=== PATIENT | male | born 1960 | race Caucasian/White ===

== ENCOUNTER 2016-06-29 10:13 | Outpatient (CLI) ==
--- NOTE | 2016-06-29 11:06 | DI ---
EXAM: Two views of the chest. History: Cough, history of smoking Comparison: Chest radiograph 09/10/2008 Findings: Heart size is normal. No focal consolidation. No appreciable pleural fluid and no pneum othorax. No acute osseous abnormalities. Impression: No acute cardiopulmonary process.
--- NOTE | 2016-06-29 11:19 | US ---
EXAM: Bilateral carotid artery Doppler History: Dizziness, history smoking Technique: Multiple sonographic images through the bilateral internal carotid arteries were obtaine d. Color duplex Doppler was used to interrogate vascular flow. Findings: The right ICA peak systolic velocity is within normal limits measuring 0.9 meters per second. The r ight ICA/cca PSV ratio is normal at 1.2. The right vertebral artery is patent and demonstrates ante grade flow. Hamm scale images demonstrate no significant plaque buildup. The left ICA peak systolic velocity is within normal limits measuring 1.1 meters per second. The lef t ICA/cca PSV ratio is normal at 1.5. The left vertebral artery was not seen. Hamm scale images de monstrate no significant plaque buildup. Impression: 1. No significant hemodynamic stenosis of the bilateral internal carotid arteries. 2. Nonvisualization of the left vertebral artery.
== END 2016-06-29 10:14 | disposition home or self-care (01) ==
LOC: RAD 10:13
PROVIDERS: ATTEND Emergency Medicine
DX: R42 Dizziness and giddiness (principal); R05 Cough; F17.210 Nicotine dependence, cigarettes, uncomplicated

== ENCOUNTER 2016-12-29 15:25 | Emergency (ER) ==
[2016-12-29 15:32] VITALS: BP 120/73; TEMP 97.1; BMI 22.5
[2016-12-29] MEDS ORDERED: BOOSTRIX IM ONE (15:43)
[2016-12-29] MEDS ORDERED: LIDOCAINE 1 % AMP 5 ML (SUTURES) SQ STA (15:43)
--- NOTE | 2016-12-29 15:46 | ED.PDOC ---
General ED Provider: Dr. ROSALVA FLORES Chief Complaint: Finger Laceration Stated Complaint: Pateint is s 56 year old male who comes to the ER with a laceration to the TIP of the right finger with a table saw. Time Seen by Physician: 15:46 Mode of Arrival: Walk-In Information Source: Patient Exam Limitations: No limitations Primary Care Provider: ARTHUR CLAUDIO Nursing and Triage Documentation Reviewed and Agree: Yes Skin Complaint Exam - Laceration/Abrasion/Hand Complaint/Exam Location of Injury: Right, Digit #2 Mechanism of Injury: Laceration (with power saw ) Onset/Duration: immediately Symptoms Are: Still present Initial Severity: Severe Current Severity: Severe Aggravating: Movement Alleviating: Compression Associated Signs and Symptoms: Reports: Fever, Chills, Erythema, Numbness, Tingling Related History: Reports: Right hand dominant Hand Picture: 1 - 1 cm Review of Systems - Review Of Systems Constitutional: Reports: No symptoms Skin: Reports: Other (Left) All Other Systems: Reviewed and Negative Past Medical History - Past Medical History Previously Healthy: Yes Endocrine: Reports: None Cardiovascular: Reports: None Respiratory: Reports: None Hematological: Reports: None Gastrointestinal: Reports: None Genitourinary: Reports: None Neuro/Psych: Reports: None Musculoskeletal: Reports: None Cancer: Reports: None - Surgical History General Surgical History: Reports: None - Family History Family History: Reports: None - Social History Smoking Status: Current every day smoker, Heavy tobacco smoker Hx Substance Use: No Alcohol Screening: Occasionally - Immunizations Tetanus Shot up to Date: No Physical Exam - Physical Exam Appearance: Ill-appearing, Thin Ill-appearing: Mild Pain Distress: Severe Respiratory: Airway patent, Breath sounds clear, Breath sounds equal, Respirations nonlabored Cardiovascular: RRR, Pulses normal, No rub, No murmur GI/: Soft, Nontender, No masses, Bowel sounds normal, No Organomegaly Musculoskeletal: Normal strength, ROM intact, No edema, No calf tenderness Skin: Warm, Dry Neurological: Sensation intact, Motor intact, Reflexes intact, Cranial nerves intact, Alert, Oriented Psychiatric: Anxious Interpretation - Radiology Interpretation Radiology Interpretation By: Radiologist Radiology Results: Positive Exam Interpreted: Other (communuted fracture of the tuffts of the right finger ) Procedures - Laceration/Wound Repair right index tip of the finger Wound Description: Irregular, Nail-avulsed Wound Length (cm): 1 Wound Width: 0.5 Wound Depth: 0.3 Wound Explored: Clean Wound Irrigated: No Wound Prep: Hibiclens Anesthesia: Lidocaine Wound Debrided: Minimal Wound Repaired With: Sutures Suture Size and Type: 5.0 prolene Number of Sutures: 4 Sterile Dressing Applied?: Yes Splint Applied?: Yes Progress: Tolerated procedure well. Critical Care Note - Critical Care Note Total Time (mins): 0 Comments: complex laceration of the distal finger through the nail. Course - Course Orders, Labs, Meds: Orders Category Date Time Status Diphth,Pertuss(Acell),Tet Vac [Boostrix] MEDS 12/29/16 15:43 Discontinued 0.5 ml IM .ONCE ONE Lidocaine HCl/Pf [Lidocaine 1 % Amp 5 ml (Sutures)] MEDS 12/29/16 15:43 Discontinued 5 ml SQ ONCE STA FINGER(S) RIGHT MIN 2V Stat RADS 12/29/16 15:45 Completed Medications Discontinued Medications Generic Name Dose Route Start Last Admin Trade Name Freq PRN Reason Stop Dose Admin Diphtheria/Pertussis/Tetanus Vacc 0.5 ml 12/29/16 15:43 12/29/16 16:06 Boostrix IM 12/29/16 15:44 0.5 ml .ONCE ONE Administration Lidocaine HCl 5 ml 12/29/16 15:43 12/29/16 16:07 Lidocaine 1 % Amp 5 Ml (Sutures) SQ 12/29/16 15:44 5 ml ONCE STA Administration Vital Signs: Temp Pulse Resp BP Pulse Ox 12/29/16 15:26 97.1 F L 74 18 120/73 97 Departure - Departure Time of Disposition: 16:35 Disposition: HOME SELF-CARE Discharge Problem: Laceration of finger Finger fracture Qualifiers: Encounter type: initial encounter Finger: index finger Fracture type: open Phalanx: distal Fracture alignment: displaced Laterality: right Qualifier Code: (S62.630B) Displaced fracture of distal phalanx of right index finger, initial encounter for open fracture Instructions: Finger Laceration (ED), Finger Fracture (ED) Condition: Fair Pt referred to PMD for follow-up: Yes Additional Instructions: Take medications as needed for pain Take antibiotics as prescribed Follow up with orthopedics due to fracture Follow up with PCP in 7-10 days to have sutures removed. Keep wound clean and dry after cleaning with soap and water twice a day Prescriptions: Hydrocodone/Acetaminophen [[place] 5-325 Tablet] 1 tab PO Q6HR PRN #20 tablet PRN Reason: PAIN Cephalexin [Keflex] 500 mg PO Q8HR #30 capsule Ibuprofen [Motrin] 600 mg PO Q6H PRN #30 tablet PRN Reason: Analgesia Allergies/Adverse Reactions: Allergies No Known Allergies Allergy (Verified 12/29/16 15:30) Home Medications: Ambulatory Orders Multivits,Ca,Min/Iron/FA/Lycop [Centrum Men's Tablet] 1 tab PO DAILY 04/12/15 Tadalafil [Cialis] 1 tab PO DAILY 04/12/15 Cephalexin [Keflex] 500 mg PO Q8HR #30 capsule 12/29/16 Hydrocodone/Acetaminophen [Montgomery 5-325 Tablet] 1 tab PO Q6HR PRN #20 tablet 06/15 Ibuprofen [Motrin] 600 mg PO Q6H PRN #30 tablet 12/29/16 Disposition Discussed With: Patient, Family
--- NOTE | 2016-12-29 16:12 | DI ---
Exam: Three views right index finger. Clinical indication: Injury with table saw. Findings / impression: There is a minimally displaced compound fracture involving the tuft of the r ight second distal phalanx. Otherwise, there are no fractures, dislocations or other significant [place] abnormalities.
[2016-12-29] MEDS ORDERED: KEFLEX PO STA (16:35)
[2016-12-29] MEDS ORDERED: NORCO 7.5-325 PO STA (16:35)
== END 2016-12-29 16:51 | disposition home or self-care (01) ==
LOC: ED 15:25
DX: S61.310A Laceration without foreign body of right index finger with damage to nail, initial encounter (principal); S62.630B Displaced fracture of distal phalanx of right index finger, initial encounter for open fracture; W29.8XXA Contact with other powered hand tools and household machinery, initial encounter; F17.210 Nicotine dependence, cigarettes, uncomplicated
CPT/HCPCS: 90471; 99283